=== PATIENT | female | born 1955 | race Caucasian/White ===

== ENCOUNTER 2019-10-04 22:47 | Inpatient (IN) ==
--- NOTE | 2019-10-04 23:09 | PROVIDER DOCUMENTATION ---
HPI-Syncope/Dizziness - General Stated Complaint: LOC,SYNCOPE Time Seen by Provider: 10/04/19 22:51 Source: patient Allergies/Adverse Reactions: Patient Allergies Allergy/AdvReac Type Severity Reaction Status Date / Time sulfamethoxazole AdvReac RASH Verified 07/30/16 10:48 [From Bactrim] trimethoprim [From Bactrim] AdvReac RASH Verified 07/30/16 10:48 Home Medications: Home Medication List Medication Instructions Recorded Confirmed Last Taken Type PRAVAstatin [Pravachol] 80 mg PO QHS 05/26/13 10/05/19 01/05/16 History Potassium Chloride E.r. [Klor-Con] 20 meq PO DAILY 05/26/13 10/05/19 01/06/16 History Metoclopramide [Reglan] 10 mg PO QHS 08/25/15 10/05/19 01/05/16 History Brimonidine 0.1% Ophth Soln 1 drp BOTH EYES BID 10/05/19 10/05/19 Unknown History [Alphagan P 0.1% Ophth Soln] Bromfenac Sodium [Prolensa] 1 drp BOTH EYES DAILY 10/05/19 10/05/19 Unknown History Ciprofloxacin HCl 1 drp RIGHT EYE 4XDAY 10/05/19 10/05/19 Unknown History Furosemide [Lasix] 20 mg PO DAILY 10/05/19 10/05/19 Unknown History Gabapentin 600 mg PO Q6-8H PRN PRN 10/05/19 10/05/19 Unknown History Hydroxyzine [Atarax] 25 mg PO PRN PRN MDD 75MG 10/05/19 10/05/19 Unknown History Losartan [Cozaar] 50 mg PO DAILY 10/05/19 10/05/19 Unknown History Montelukast [Singulair] 10 mg PO QHS 10/05/19 10/05/19 Unknown History [place]-3 Acid Ethyl Esters [Lovaza] 1 gm PO BID 10/05/19 10/05/19 Unknown History Omeprazole 40 mg PO DAILY 10/05/19 10/05/19 Unknown History Prednisolone Acetate/Pf 1 drp LEFT EYE TID 10/05/19 10/05/19 Unknown History [Prednisolone Acet 1% Eye Drop] Prednisolone Acetate/Pf 1 drp RIGHT EYE 4XDAY 10/05/19 10/05/19 Unknown History [Prednisolone Acet 1% Eye Drop] Raloxifene [Evista] 60 mg PO DAILY 10/05/19 10/05/19 Unknown History Temazepam 30 mg PO QHS 10/05/19 10/05/19 Unknown History Tizanidine [Zanaflex] 4 mg PO QHS 10/05/19 10/05/19 Unknown History - History of Present Illness-Syncope/Dizzy Nature of Presenting Problem: 64 YO F pmh for HTN brought in by EMS after called by after she was apparently weak and "out of it" tonight while laying down. He states he could not get her aroused. He called EMS and EMS was going to let the patient come by car, however she was too weak to get helped to the car, so EMS brought her to the ED. Pt had recent cataract surgery this morning. She states she was fine before she went in for surgery today. If witnessed syncope, by whom?: , near syncope witnessed by EMS Prior Episodes: reports: remote history Onset/Duration: reports: this evening Timing: reports: still present, constant Symptoms prior to episode: reports: back pain (chronic). denies: headache, lightheaded, visual disturbance, nausea/vomiting, racing heart, abdominal pain, confusion Context: reports: lost consciousness, became unresponsive, felt faint. denies: confused after event, breathing shallow, breathing stopped, lost pulse, seizure activity observed Loss of Consciousness: brief (seconds) Current Symptoms: reports: weakness. denies: chest pain, breathing difficulty, short of breath, nausea, vomiting, lightheaded, headache Recently Seen Here or By Another Healthcare Provider: Yes - Dizziness Severity in ED: reports: moderate Dizziness Related Current/Associated Symptoms: reports: weakness. denies: lightheaded, dizzy, headache Modifying Factors: improves with: lying down Patient usually:: reports: walks without assistance Review of Systems - Adult - REVIEW OF SYSTEMS - ADULT Constitutional: denies: chills, fever Eyes: reports: see HPI Ears, Nose, Mouth & Throat: reports: no symptoms reported Cardiovascular: reports: no symptoms reported. denies: palpitations Respiratory: reports: no symptoms reported Gastrointestinal: reports: no symptoms reported Genitourinary: reports: no symptoms reported Musculoskeletal: reports: no symptoms reported Integumentary: reports: no symptoms reported Neurological: reports: no symptoms reported Psychiatric: reports: no symptoms reported Hematologic/Lymphatic: reports: no symptoms reported Past History - Adult - PAST MEDICAL HISTORY-ADULT Review of Records: reports: Old Records Reviewed Major Childhood Illnesses: reports: denies history Cardiovascular: reports: HTN, hyperlipidemia Respiratory: reports: bronchitis, COPD Musculoskeletal: reports: chronic pain Neurological: reports: Seizures/Epilepsy (with stress) - PRIOR SURGERIES/PROCEDURES Surgical/Procedure History: reports: recent surgery, appendectomy, hysterectomy, tonsillectomy, hernia repair, orthopedic (extremity), other (cataract removal right eye) - IMMUNIZATION STATUS Childhood Immunizations: See Nurse Assessment Flu Vaccine: See Nurse Assessment - FAMILY HISTORY Family History: reviewed, not pertinent - SOCIAL HISTORY Smoking: denies Substance Use: denies Living Situation: family Physical Exam-General - PHYSICAL EXAM-ADULT Initial Vital Signs Reviewed: Yes - CONSTITUTIONAL General Appearance: slow to respond, other (sleepy) - EYES Eyes: other (eye patch over right eye) - HEAD, EARS, NOSE, MOUTH & THROAT HENMT: normocephalic/atraumatic, moist mucous membranes - NECK Neck: supple - RESPIRATORY Respiratory: lungs clear, normal breath sounds, no pleuratic chest pain, no respiratory distress - CARDIOVASCULAR Cardiovascular: regular rate, rhythm - GASTROINTESTINAL (ABDOMEN) Abdominal Exam: non tender, soft. negative: guarding, rigid, rebound, tenderness, hernia, mass - MUSCULOSKELETAL Extremity: non-tender, normal inspection, no pedal edema - SKIN Integumentary: normal color, normal turgor, warm/dry - NEUROLOGIC Neurologic: grossly normal - PSYCHIATRIC Psych/Mental Status: normal mood/affect, oriented x 3, other (slow to respond, but answers questions appropriately) Progress - PLAN OF CARE/RESULTS Progress/Plan/Lab Results: Orders Category Date Time Status Admit [facility] Routine AdmDCTranf 10/05/19 05:18 Active Activity - Strict Bedrest ORDERED Care 10/05/19 05:18 Active Neurological Check Q4H Care 10/05/19 05:18 Active Nursing- Obtain EKG ONCE Care 10/04/19 23:06 Completed Saline Loc NOW Care 10/04/19 23:06 Completed Vital Signs Order Q 4-HR ASSESS Care 10/05/19 05:18 Active Z-Document. for Tele Applied ORDERED Care 10/05/19 05:[address] HEAD W/O CONTRAST [CT] Stat Exams 10/04/19 23:06 Completed CBC WITH ELECTRONIC DIFF [HEME] Stat Lab 10/04/19 23:46 Completed COMPREHENSIVE METABOLIC PANEL [CHEM] Stat Lab 10/04/19 23:46 Completed TROPONIN T Stat Lab 10/04/19 23:46 Completed TSH Stat Lab 10/04/19 23:46 Completed URINALYSIS W/POSS RFLX CULT [URINALYSIS] Stat Lab 10/05/19 00:31 Completed URINE DRUG SCREEN Stat Lab 10/05/19 00:31 Completed 0.9% Sodium Chloride Inj [Ns] 1,000 ml Med 10/05/19 02:04 Discontinued IV 999 mls/hr Acetaminophen [Tylenol] Med 10/05/19 03:10 Discontinued 650 mg PO NOW ONE Oxygen Device Routine Oth 10/05/19 05:18 Completed Telemetry [OM.EQ] Routine Oth 10/05/19 05:18 Active EKG [EKG] Stat Ther 10/04/19 23:06 Draft Transfer/Admit Order [TRANSFER] Routine Transfer 10/05/19 03:14 Completed Result Diagrams: 10/04/19 23:46 10/04/19 23:46 - REASSESSMENT Reassessment #1 Time Reassessed: 00:30 Status: unchanged (orthostatics positive. will give fluids) - EKG 1 Time of EKG reading by physician:: 23:24 EKG Read and Signed by:: Miracle Disla EKG Interpretation (*Must complete 3 of following elements*): Normal Rate: 64 Rhythm: NSR [place]: normal QRS: normal SD Interval: normal ST Wave: normal Prior EKG Comparison: changes noted (improved from 07/30/16) - CT/MRI 1 CT Study: Head Impression: See EMR Report (No acute intracranial hemorrhage or process lef sphenoid sinusitis) - CONSULTS/PCP/HOSPITALIST Notification #1 *Consult/PCP/Hospitalist*: Dr. Darling Time Discussed: 01:40 Consult Disposition: Will see in ED, Admit Departure - Departure Date of Disposition Decision: 10/05/19 Time of Disposition Decision: 01:41 DIAGNOSIS: Syncope, AMS (altered mental status) Disposition: ADMITTED INPATIENT 09 Certified Medical Emergency: Emergent Condition: Stable - Critical Care Note This patient required my direct & personal management of CC.: No Attestation - Physician/ JAKE Attestation The physician spent face to face time with patient:: Yes Advanced Practice Provider documentation review:: Supervising physician onsite and consulted in the evaluation and care of this patient. The physician did have a face to face encounter with the patient.
[2019-10-04 23:53] LABS: BASO# 0.02 X1000 (0.0-0.2); BASO% 0.5 % (0.0-0.8); EOS# 0.09 X1000 (0.0-0.7); EOS% 2.1 % (0.0-10.0); HEMATOCRIT 38.1 % (37.0-47.0); HEMOGLOBIN 12.2 g/dL (12.0-16.0); LYMPH# 1.71 X1000 (1.2-3.4); MCH 28.3 PG (27-31); MCV 88.4 FL (81-99); MONO# 0.37 X1000 (0.11-0.59); MONO% 8.7 % (1.7-9.3); NEUT# 2.08 X1000 (1.4-6.5); NEUT% 48.7 % (42.2-75.2); PLT 228 X1000 (130-400); RBC 4.31 XMIL (4.2-5.4); RDW 12.9 % (11.5-14.5); WBC 4.27 X1000 (4.8-10.8)
[2019-10-05 00:30] LABS: AGAP 14; CHLORIDE 102 mmol/L (98-107); GLUCOSE 109 mg/dL (70-104); POTASSIUM 3.6 mmol/L (3.5-5.1); SODIUM 140 mmol/L (136-145); TCO2 24 mmol/L (25-35)
[2019-10-05 00:31] LABS: ALB/GLOB RATIO 1.7; ALBUMIN 3.8 g/dL (3.5-5.0); ALKALINE PHOSPHATASE 91 U/L (32-104); BUN 18 mg/dL (8-22); CALCIUM 8.9 mg/dL (8.8-10.2); COSMO 282; CREATININE 0.8 mg/dL (0.5-0.9); ESTIMATED GFR > 60; GOT 17 U/L (10-30); GPT 14 U/L (10-36); TOTAL BILIRUBIN 0.26 mg/dL (0.20-1.00)
[2019-10-05 00:43] LABS: URINE SOURCE CATH
[2019-10-05 01:05] LABS: BILIRUBIN URINE NEGATIVE (NEGATIVE); BLOOD URINE NEGATIVE (NEGATIVE); COLOR YELLOW; GLUCOSE URINE NEGATIVE (NEGATIVE); KETONE URINE NEGATIVE (NEGATIVE); LEUKOCYTES URINE NEGATIVE (NEGATIVE); NITRITE URINE NEGATIVE (NEGATIVE); PH URINE 5.5; PROTEIN URINE NEGATIVE (NEGATIVE); SP GRAVITY URINE 1.015; TURBIDITY URINE CLEAR (CLEAR); UR EPITHELIAL CELLS <10 /HPF (<10); URINE BACTERIA NEGATIVE /HPF; URINE RBC <10 /HPF (<10); URINE WBC <10 /HPF (<10); UROBILINOGEN URINE NORMAL (NORMAL)
[2019-10-05 01:06] LABS: UR AMPHETAMINES QUAL NONE DETECTED (NONE DETECT); UR BARBITUATES QUAL NONE DETECTED (NONE DETECT); UR BENZODIAZEPIN QUAL PRESUMPTIVE POSITIVE (NONE DETECT); UR CANNABINOIDS QUAL PRESUMPTIVE POSITIVE (NONE DETECT); UR COCAINE QUAL NONE DETECTED (NONE DETECT); UR METHADONE QUAL NONE DETECTED (NONE DETECT); UR OPIATES QUAL NONE DETECTED (NONE DETECT); UR OXYCODONE QUAL NONE DETECTED (NONE DETECT); UR PCP QUAL NONE DETECTED (NONE DETECT)
--- NOTE | 2019-10-05 01:14 | EKG Report ---
Test Performed on : 10/04/2019 11:19:03 PM Test Reason : CP Blood Pressure : / mmHG Vent. Rate : 064 BPM Atrial Rate : 064 BPM P-R Int : 178 ms QRS Dur : 084 ms QT Int : 416 ms P-R-T Axes : 054 023 021 degrees QTc Int : 429 ms Normal sinus rhythm. Low voltage QRS Borderline ECG When compared with ECG of 30-JUL-2016 11:22, Nonspecific T wave abnormality, improved in Inferior leads Unconfirmed Result
[2019-10-05] MEDS ORDERED: NS 1,000 ML IV ONE (02:04)
--- NOTE | 2019-10-05 03:00 | HISTORY AND PHYSICAL ---
ADDENDUM: Ms. Joanna Sanchez is a 64-year-old woman with past medical history of hypertension, hyperlipidemia, osteoporosis and asthma who underwent cataract surgery early hours of yesterday. She did take her blood pressure medication, i.e. losartan, prior to the surgery and took the rest thereafter. She denies any recent change in the dose of any of her medication or any new medication of recent. She reports that late last night yesterday her found her unresponsive and had to really arouse, shaking her vigorously to wake her up. He then called EMS to try to get her up on 2 or 3 occasions and she transiently blacked out. There were no antecedent or prodromal symptoms prior to this. Prior to being brought to the ER, blood pressure was in the 80/40 range with a heart rate of 70. Since she has been in the ER, she received 2 L of fluid. She says she is feeling better. Her blood pressure is now 150/102. She remains with a dull headache. The patient has extensive list of medications and her urine drug screen was notable for THC. Some of the medications she does not know why she is taking some of them, just takes them because the doctor told her to. I have reviewed her list of medications, and Zanaflex could be a problem as it can cause orthostatic hypotension. This was noticed in the ER, i.e. the orthostatic hypotension. Her blood pressure medications may also be playing a role and these will need to be adjusted or in some cases discontinued. Other medications of note that might need to be stopped include Reglan, which she does not really have a good reason for taking. The patient may need to decide whether she needs to be on Evista or Fosamax for osteoporosis. We will order an echocardiogram to make sure she does not have valvular disease, but her cardiorespiratory exam is normal, however. She will be monitored overnight on telemetry and orthostatic vital signs will be done during her stay. It is possible patient may also have yet to be diagnosed dysautonomia. cc: Seamus Darling MD
[2019-10-05] MEDS ORDERED: TYLENOL PO ONE (03:10)
[2019-10-05] MEDS ORDERED: ZOFRAN IV PRN (05:18)
[2019-10-05] MEDS: PRILOSEC PO SCH (06:35)
--- NOTE | 2019-10-05 06:42 | Diag Imaging Result Doc PS360 ---
CT HEAD W/O CONTRAST - 10/04/2019 INDICATION: ams/ syncope COMPARISON: 01/06/2016 FINDINGS: The ventricles and sulci are normal in size and contour. No intracranial mass or hemorrhage. The skull is intact. There is severe opacification of the left sphenoid sinus compatible with sinusitis. IMPRESSION: Sinusitis. No acute disease. This exam was performed using automated exposure control, adjustment of mA or kV according to patient size, and/or use of iterative reconstruction technique Electronically signed by Jace Lester 10/05/2019 6:39 AM
[2019-10-05] MEDS: TYLENOL PO PRN ×2 (11:19→20:49)
--- NOTE | 2019-10-05 11:27 | HISTORY AND PHYSICAL ---
PRIMARY CARE PROVIDER: Dr. Moreira with [facility]. DATE AND TIME: 10/05/2019 at 0300. CHIEF COMPLAINT: Syncope. HISTORY OF PRESENT ILLNESS: Ms. Sanchez is a 64-year-old female who presented to the ER with complaints of syncope. The patient did undergo surgery on her right eye for a cataract surgery earlier in the day on October 04, 2019. The patient reports that she did take her blood pressure medication prior to surgery though took all her other morning meds at around 12 p.m. after she arrived home from surgery and then took her nighttime meds at around 9 p.m. She did report that she did receive some type of antianxiety medication through her IV during the procedure though other than this did not receive any other medications that she is aware of. She did not receive any oral or IV pain medications. The patient denies any recent changes in any of her medicines or any new medications. She denied feeling drowsy, weak or not feeling well after she arrived home and prior to taking her nighttime meds and having her syncopal episode. Her reports that the patient was lying in bed. He left the room and came back to find her unresponsive. She was laying down in the bed at the time. She did not fall during her syncopal episode. He reported that he did try to arouse her though was unable to and did call EMS. Prior to or just shortly after EMS arrival, the patient did regain consciousness. Her blood pressure was noted to be in the 80s systolically. Her reports that they were initially going to try to bring her to the ER by private vehicle though when they attempted to get her up out of bed to help her walk to the car, the patient had further syncopal episodes. She was, ultimately, brought in by EMS. The patient denied any neurological symptoms or not feeling well prior to her syncopal episode. She states she has had similar episodes to this on several different occasions though has not actually ever seen a physician for further evaluation of these. She states that with her other syncopal episodes, she did not have any symptoms prior to either. She does report a history of seizures which she states she has had several in the past with the last one being in October,, though does not take any seizure medications. She is reporting a headache at this time though she is lying in semi-Sin's position at the present time and is not reporting any dizziness or feelings of being lightheaded. She denies any chest pain, shortness of breath, cough, abdominal pain, nausea, vomiting or diarrhea. She denies any bleeding of any kind. She denies hematemesis, hematochezia or melena. She denies any dysuria or urinary frequency. The patient does have some chronic swelling in her bilateral lower extremities, mainly around her ankles that she takes Lasix for daily; though other than this, she denies any other worsening swelling or any new pain, numbness or tingling. She also denies any fever, body aches or chills. She denies any visual disturbances other than the visual disturbance in her right eye since her surgery yesterday morning. Upon evaluation in the ER, her initial vital signs upon arrival here were heart rate 64, respirations 16, blood pressure 141/100 with MAP of 109, oxygen saturation 93% on room air. Though as previously mentioned, EMS reported her having a low blood pressure in the 80s systolically as well as her did report this at home as well. She did receive, from what I understand, a small bolus with EMS prior to arrival; but other than this has not received any other fluids. Labs were pretty unremarkable. Electrolytes were within normal limits. Serum glucose was 109. Fingerstick was 103 upon arrival. CK and troponin are negative. Urinalysis did not show any signs of infections. Urine drug screen was positive for benzodiazepines though she does take temazepam and did was positive for cannabinoids as she did report that she does smoke 1 joint a day and has done so for 30 years. EKG showed normal sinus rhythm at a rate of 64 with QTc of 429. They performed a head CT without contrast which did show sinusitis though no other acute disease was noted. They did attempt on 2 different occasions in the ER to perform orthostatic vital signs though the patient did become very symptomatic just upon going from a lying to a sitting position, so they are going to attempt this later on this morning. At this time the patient will be admitted for further treatment and evaluation of her syncope. REVIEW OF SYSTEMS: A 14-point review of systems was conducted with the patient, and all were negative except for pertinent positives mentioned in the above HPI. PAST MEDICAL HISTORY: 1. History of COPD/asthma. 2. Hyperlipidemia. 3. Hypertension. 4. History of seizures. 5. Fibromyalgia. 6. History of osteoporosis. 7. GERD. 8. History of insomnia. 9. History of sleep apnea with CPAP worn nightly. 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 11.Chronic bilateral lower extremity swelling PAST SURGICAL HISTORY: 1. Appendectomy. 2. Cystoscopy/bladder surgery. 3. Hysterectomy. 4. Salpingo-oophorectomy. 5. Hernia repair. 6. Tonsillectomy. 7. Surgery for calcium deposit/knot in her hand. 8. Surgery for calcium deposit/knot removed from her head, per the patient. 9. Partial right lung removal secondary to carcinoid tumor. 10.Cataract surgery on her left eye. 11.Status post cataract surgery on her right eye yesterday, October 04, 2019. SOCIAL HISTORY: The patient denies any tobacco or alcohol use though said she has been exposed to secondhand smoke. She does report that she does smoke 1 marijuana joint every night and has done so for 30 years. FAMILY HISTORY: Positive for her mother having a history of dementia. Her father from a myocardial infarction. He had hypertension as well. She does have 1 sibling who has had a stroke at a fairly young age. ALLERGIES: The patient has allergies to sulfur, Bactrim and has been instructed not to take aspirin or ibuprofen by her physician though the patient does not know exactly why but denied allergic reaction to NSAID. HOME MEDICATIONS: 1. Lasix 20 mg p.o. daily. 2. Gabapentin 600 mg p.o. q 6-8 hours p.r.n. 3. Cozaar 50 mg p.o. daily. 4. Reglan 10 mg p.o. q bedtime. 5. Singulair 10 mg p.o. q bedtime. 6. Lovaza 1 gram p.o. b.i.d. 7. Omeprazole 40 mg p.o. daily. 8. Potassium chloride extended release 20 mEq p.o. daily. 9. Pravastatin 80 mg p.o. q bedtime. 10.Evista 60 mg p.o. daily. 11.Temazepam 30 mg p.o. q bedtime. 12.Zanaflex 4 mg p.o. q bedtime. 13.Hydroxyzine and trazodone were listed on the patient's home medication list though she states she does not take these medications any more. 14.The patient also has 4 new prescriptions for eye medications related to her surgery that she had yesterday morning on October 04, 2019, though these are unknown at this time. The patient's is supposed to be bringing these medications. We have placed an order for the nurse to update these medications in the computer and notify the physicians once done so that the appropriate medications can be continued. WBC 4270, hemoglobin 12.2, hematocrit 38.1, platelet count 228,000, sodium 140, potassium 3.6, chloride 102, serum bicarb 24, BUN 18, creatinine 0.8 with GFR greater than 60, glucose 109, calcium 8.9, magnesium 2. Liver function tests within normal limits. CK 73. Troponin less than 0.01. TSH 3.14. Urinalysis obtained via catheter was negative for protein, glucose, ketones, blood, nitrites, leukocytes, white blood cells or bacteria. Urine drug screen was positive for benzodiazepines and cannabinoids. EKG showed normal sinus rhythm, rate of 64 with QTc of 429. CT of the head without contrast showed sinusitis though no acute disease (note this is per radiology). PHYSICAL EXAMINATION: VITAL SIGNS: Temperature 98, heart rate 71, respirations 16, blood pressure 152/105, oxygen saturation 97% on room air. GENERAL: Ms. Sanchez us a pleasant 64-year-old female who is resting on the ER stretcher. She is in no acute distress. She was awake, alert and able to answer questions appropriately. HEENT: Head is atraumatic, normocephalic. Pupils are 3 mm bilaterally. The patient did have a clear protective eye patch noted over her right eye. Oral mucosa is moist. Oropharynx is clear. NECK: Supple. Trachea midline. No carotid bruits noted upon auscultation. CARDIOVASCULAR: The patient has S1 and S2 present. No murmurs, gallops or rubs appreciated. Regular rate and rhythm. PULMONARY: The patient has symmetrical chest expansion bilaterally. Lung sounds are clear to auscultation in bilateral full menard. ABDOMEN: Soft, nontender and nondistended. Bowel sounds are present in all 4 quadrants and normoactive. EXTREMITIES: No cyanosis or edema noted. Pulse, motor and sensory are intact in all extremities. Radial and pedal pulses are 2+ bilaterally. INTEGUMENTARY: The patient's skin is pink, warm and dry. NEUROLOGICAL: The patient is alert and oriented to person, place, time and situation. She has equal hand grasp and muscle strength bilaterally. There is no facial droop noted. There is no arm drift noted. She did not report any visual disturbances other than some blurriness in her right eye though the patient did have eye surgery for cataract on her right eye yesterday. She denies any numbness or tingling in the extremities. ASSESSMENT AND PLAN: 1. Syncope. For further evaluation of this, we have order for the patient to receive an echocardiogram as well as an EEG. Though she is denying any chest pain, given her syncope, we will go ahead and do a series of cardiac enzymes. Electrolytes were within normal limits. This could be orthostatic in nature though at this time orthostatics have not been completed due to the fact that the patient was still symptomatic the first 2 times they attempted. Her blood pressure has improved though until we complete orthostatic blood pressures to see how she responds to positional changes, we will not administered any antihypertensives at this time. We are going to hold some of her medications as well that may have attributed possibly to her syncopal episode, specifically her Zanaflex and temazepam. We have placed a consult with cardiology and neurology. She will have q 4 hour vital signs and neuro checks. She will be placed on strict bedrest at this time. We will await results of diagnostic studies and cardiology's and neurology's evaluation and further recommendations for management. 2. History of hypertension. As mentioned above, we are holding her antihypertensive medication at this time. 3. History of reported seizures in the past though the patient states she does not take any seizure medications at present. 4. Status post right eye surgery for cataract by Dr. Shearer yesterday, October 04, 2019. We have placed a nursing order for them to notify Dr. Shearer this morning of the patient's condition and admission. She was supposed to have a follow-up postoperative appointment this morning on October 05, 2019, at 8:15 a.m. We have also requested that the patient's bring her 4 eye medications to the hospital this morning so that they can be reconciled and placed in the patient's chart and appropriate eyedrops can be continued, given her recent eye surgery. 5. DVT prophylaxis will be provided with SCDs. The patient has been placed on the medical floor with telemetry. She will have vital signs q 4 hours, neuro checks q 4 hours with strict intake and output. She is on bedrest at this time. She will be on a heart healthy diet. Further orders and recommendations pending hospital course, diagnostic studies and physician evaluation. Dictated by NADINE Joyner for Seamus Darling MD cc: Seamus Darling MD [facility]
--- NOTE | 2019-10-05 15:41 | CONSULTATION ---
DATE OF CONSULTATION: 10/05/2019 Ms. Sanchez is 64 years old and she had some recent collapse with question of altered awareness. History from the patient is that she felt pretty well following cataract surgery yesterday morning. Last evening helped her get her eye drops placed. She took her usual nighttime medicines which include temazepam chronically. She remembers her getting up to go to the bathroom and she next realized was "trying to arouse me" by shaking her and calling her name. She remembers having discussion with and deciding that ambulance would be summoned. When ambulance arrived, she remembers having discussion that she preferred not to ride by ambulance and she would attempt to go the emergency room by private car. She remembers being helped up and taking a few steps and then beginning to collapse to the floor. She remembers being helped up again, collapsing again and then helped up and collapsing a 3rd time. She is not certain there was ever memory gap with these 3 brief episodes of collapse. She felt weak all over. She did not notice focal weakness. She had a lightheaded sensation "like about to pass out." reports he found her with eyes rolled up and she seemed unable to speak to him. She felt clammy. He checked her blood pressure several times and reports finding 80s over 50s. He reports she has had episodes in the past of inattention and clammy sensation and blood pressures have been as low as 70/50 then. 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 These began about 10 years ago following some bad news regarding family member. reports he has checked blood pressures on several occasions during these episodes and at least once blood pressure was 70 over 50s. He does not recall the other blood pressure readings during an episode. She has wet her pants a few times during these spells. Episodes have been associated with eye fluttering and poor attention going on for a minute up to 10 minutes. There has never been rigidity, limb jerking or other seizure- like feature. She often feels exhausted afterward. She reports taking medicine for seizure control for a year or so and that did not stop the spells. She does not remember the name of the medicine or the dose. She stopped that medicine several years ago. There is no history of serious head injury, diagnosed stroke, seizure other than what is reported above, other episodes of syncope or collapse. Workup here includes noncontrast CT of the head showing nothing remarkable. EEG just completed is normal. She has been afebrile. Systolic blood pressures have ranged 130s to 170s here. Heart rate has ranged 60s to 80s. Lab included urine drug screen positive for cannabis and for benzodiazepine consistent with her home prescription for temazepam. Chemistry showed blood sugar 109 and nothing else remarkable. On exam, Ms. Sanchez is awake, alert, attentive, bright, oriented and appropriate. Speech is not dysarthric. Language function is intact. Memory of recent and remote events is good. Head and neck are unremarkable. Visual menard are full tested by confrontational finger counting. Extraocular movements are full. She has a shield over the right eye. Facial motility is symmetric. Tongue is midline. Palate is midline. Shoulder shrug is equal. Strength is normal in the arms and legs. She did well on [id number] testing bilaterally. She has some variable responses to pinprick testing over the lower legs but there was no consistent or reproducible deficit identified. I did not test her gait. Plantar response is silent bilaterally. Reflexes are 1+ at the ankles and wrists symmetrically. IMPRESSION: 1. Recent period of inattention and 3 brief episodes of collapse with uncertain altered awareness. Features seem more consistent with postural lightheadedness. I do not think these were primary neurologic events. 2. She has history of "stress seizures" which appear to have been worked up thoroughly and have been shown to be not epileptic seizures. I do not think we need further workup for that problem now. Negative EEG today is reassuring. If she has more episodes, I will be glad to see her later as an outpatient to discuss that problem. I encouraged her to take her medicines as directed, to be careful with activities, to sit down if she is lightheaded, to stay well hydrated and to keep followup with her other clinics. Thanks for asking Neurology to see Ms. Sanchez. cc: MD LUIS Lehman III
--- NOTE | 2019-10-05 16:02 | Diag Imaging Result Doc PS360 ---
MRI BRAIN W/WO CONTRAST - 10/05/2019 INDICATION: recurrent syncope, seizures COMPARISON: CT from 10/04/2019 FINDINGS: There is no area of restricted diffusion. The ventricles and sulci are normal in size and contour. No intracranial mass or hemorrhage. No area of abnormal contrast enhancement. Midline structures including the optic chiasm and pituitary are normal. There is sphenoid sinusitis. IMPRESSION: Sphenoid sinusitis. Otherwise negative exam. Electronically signed by Jace Lester 10/05/2019 4:00 PM
[2019-10-05] MEDS: NEURONTIN PO PRN ×2 (16:19→22:31)
[2019-10-05] MEDS: CILOXAN OPHTH SOLN RIGHT EYE SCH ×2 (17:37→20:51)
[2019-10-05] MEDS: PRED FORTE 1% OPH SUSPENSION RIGHT EYE SCH ×2 (17:38→20:51)
[2019-10-05] MEDS: PRED FORTE 1% OPH SUSPENSION LEFT EYE SCH (17:38)
--- NOTE | 2019-10-05 18:16 | CARDIOLOGY CONSULTATION ---
DATE: 10/05/2019 CONSULTATION REQUESTED BY: Hospitalist Service. REASON FOR REQUEST: 1. Syncopal episodes. 2. Loss of consciousness. HISTORY: Ms. Sanchez is a patient of Dr. Radha Gaston. She is 64 years of age, female. She was brought to the emergency room yesterday because early in the morning, she had cataract surgery. She had an uneventful day. At night, she was watching TV with her and all the time when she was lying on her back the found her unresponsive. He went back to the bed after going to the bathroom and shook her up a little until eventually she seemed to come back to her senses. Her blood pressure reportedly was low in the systolic 80/40 or so. They called the EMS. The patient tried to get up and walk 3 times or so and 3 times she went back and fell on her bed. The patient reportedly has had extensive evaluation at [facility] for these episodes in the past and the diagnosis that was given to the was that she had "psychosomatic seizures." The patient denies having chest pain or shortness of breath. She is just limited because of physical deconditioning. PAST HISTORY: Positive for hypertension. She also has hyperlipidemia. She has acid reflux. She has some chronic back pain. SURGICAL HISTORY: She just had cataract surgery yesterday of the right eye. They did not give her any systemic medication. She has had hysterectomy in the past. She has had back surgery. She has been diagnosed with "carcinoid tumor". This has been followed by the Oncology service Dr. Garcia. The patient has no other major history. SOCIAL HISTORY: She has been to her for 40 years. She has 4 grownup children. Not a smoker. FAMILY HISTORY: Father had a massive WA. HOME MEDICATIONS: At the time of this admission included the following: She is taking ciprofloxacin eye drops alphgan eyedrop and brimonidine eye drops. Furosemide/Lasix 20 mg daily, gabapentin 300 every 6 to 8 hours, Atarax 25 mg as needed, losartan 50 mg daily. Reglan 10 mg at bedtime. Singular 10 mg at bedtime. Lovaza 1 g twice. Omeprazole 40 mg twice. Potassium chloride 20 mEq daily. Pravachol 80 mg at bedtime. Temazepam 30 mg at bedtime. Zanaflex 4 mg at bedtime. Trazodone 150 mg at bedtime. ALLERGY: Sulfa drugs. Trimethoprim. REVIEW OF SYSTEMS: Some chronic headache in the mornings and for which she takes Tylenol and some chronic back pain, nothing significant. She is not very active physically. OBJECTIVE: Vital Signs: At this time, blood pressure 159/88, temperature 98.1 degrees, pulse 83, respirations 18. General: She is awake, alert, in no distress. HEENT: Unremarkable. Chest: Clear to auscultation and percussion. Heart: Sounds regular and rhythmic. No gallop or murmur. Abdomen: Nontender, obese. Extremities: Showed good pulses. No peripheral edema. Neurological: Nonfocal moves 4 extremities. IMPRESSION: 1. Patient who presents with loss of consciousness which happens when she is lying flat. That is not cardiac syncope. The only possible cardiac syncope would be if she were having advanced heart block or ventricular tachyarrhythmia and that is not the case. Her 12 lead EKG does not support such a diagnosis. Her ECG last night at 11:19 p.m. shows sinus rhythm, rate 64 beats per minute. OH interval 178, QRS 84 milliseconds. 2. History of hypertension. 3. History of hyperlipidemia. 4. Obesity. Body mass index is 36.5. 5. 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 History of carcinoid tumor. RECOMMENDATION: At this time from a cardiac viewpoint, I would await the results of the echocardiogram and neurology evaluation. I really cannot attribute her complaints to cardiac pathology, because again, if this were an arrhythmia, we would have seen something on the resting ECG and we have not and there is no consistent orthostatic hypotension in this case. Further advice will be forthcoming. cc: Siemon Heaton MD [facility]
[2019-10-05] MEDS: ZANAFLEX PO SCH (20:45)
[2019-10-05] MEDS: RESTORIL PO SCH (20:45)
[2019-10-05] MEDS: DESYREL PO SCH (20:46)
[2019-10-05] MEDS: SINGULAIR PO SCH (20:46)
[2019-10-05] MEDS: ALPHAGAN P 0.1% OPHTH SOLN BOTH EYES SCH (20:50)
[2019-10-06] MEDS: PRILOSEC PO SCH (06:11)
--- NOTE | 2019-10-06 06:52 | EEG REPORT ---
DATE: 10/05/2019 EEG #: [id number] COMMENT: This is a digitally recorded EEG on a 64-year-old patient with recent multiple episodes of collapse with brief altered awareness and reported history of "stress seizures" over the last 8 to 10 years. FINDINGS: During waking, medium amplitude 9 Hz posterior rhythm is present symmetrically and reacts normally to eye opening. Background contains polymorphic and rhythmic theta frequencies over the frontal and central regions symmetrically. Drowsing occurred briefly with appearance of more generalized slowing and attenuation of the posterior rhythm. Stage 2 sleep was not recorded. Photic stimulation did not significantly alter the record. Hyperventilation was not done. No definite epileptiform discharge was identified. INTERPRETATION: Normal electroencephalogram. CORRELATION: The absence of epileptiform discharges on a single EEG does not exclude a clinical diagnosis of seizures, but there is nothing on this record to suggest the presence of a seizure disorder. cc: Crow Agrawal III, MD MTDD
[2019-10-06] MEDS: ALPHAGAN P 0.1% OPHTH SOLN BOTH EYES SCH ×2 (09:31→20:48)
[2019-10-06] MEDS: PRED FORTE 1% OPH SUSPENSION RIGHT EYE SCH ×4 (09:31→20:48)
[2019-10-06] MEDS: CILOXAN OPHTH SOLN RIGHT EYE SCH ×4 (09:31→20:48)
[2019-10-06] MEDS: COZAAR PO SCH (09:32)
[2019-10-06] MEDS: NEURONTIN PO PRN ×2 (09:32→18:38)
[2019-10-06] MEDS: EVISTA PO SCH (09:32)
[2019-10-06] MEDS: LASIX PO SCH (09:32)
[2019-10-06] MEDS: PATIENT'S OWN MED BOTH EYES SCH (09:32)
[2019-10-06] MEDS: PRED FORTE 1% OPH SUSPENSION LEFT EYE SCH ×3 (09:33→18:11)
--- NOTE | 2019-10-06 12:11 | ECHO REPORT ---
ORDER DATE: 10/05/2019 INTERPRETING PHYSICIAN: Glenn Jacobs MD. ECHOCARDIOGRAPHIC MEASUREMENTS: 1. Interventricular septum 1.0. 2. Left ventricular posterior wall 1.0. 3. Diastolic diameter 4.8. 4. Left atrium 3.7. 5. Aorta 3.7. FINDINGS: 1. Aortic valve leaflets are trileaflet. 2. Pulmonic valve was normal. 3. Tricuspid valve was normal. 4. Mitral valve was normal. 5. Mild mitral regurgitation. 6. Mild tricuspid regurgitation. Peak velocity across the tricuspid valve less than 2 m/sec by Doppler studies. There is no aortic stenosis or regurgitation. 7. Normal left ventricular cavity size. Estimated ejection fraction of 70%. Hyperdynamic left ventricular systolic function. 8. There is no pericardial effusion or obvious intracardiac mass or thrombus. cc: Glenn Jacobs MD
--- NOTE | 2019-10-06 12:25 | PROGRESS NOTE ---
DATE: 10/06/2019 SUBJECTIVE: 1. Patient of Dr. Radha Gaston. This 64-year-old came in because of syncope. She presented to the ER after complaining of syncope. Patient did undergo syncope and hit her right eye. She underwent surgery on the right eye for cataract surgery on the day of 10/05/2019. The patient reports she did take her blood pressure medication prior to surgery, though took all her other morning medications around 12 p.m. She arrived home from surgery and took her nighttime medications around 9 o'clock. Did report she received some type of antianxiety medication in IV. So, she did not fall during the syncopal episode, but he did try to arouse her, unable to, and the patient regained consciousness. Blood pressure noted to be in the 80s, so admitted with syncopal episode. Plan is to look at her left ventricular function and check out electrolytes. 2. History of hypertension. Blood pressures have been low. 3. History of reported seizures in the past. The patient does not take any seizure medication. 4. Status post right eye surgery for cataract per Dr. Shearer the day before admission. The patient is feeling better. Blood pressure is running a little bit high. OBJECTIVE: Vital Signs: Temperature 97.7 degrees, pulse 69, respirations 18. Lungs: Clear in all lung menard. Cardiovascular exam: Regular rhythm and rate without murmur or S3. Abdomen: Soft. Skin: Skin is warm and dry. CURRENT MEDICATION: On Singulair 10 mg at bedtime, Restoril 30 mg at bedtime, Zanaflex 4 mg at bedtime, Desyrel 150 mg at bedtime, ciprofloxacin 0.3%--I think that it is drops that she has in that right eye, Lasix 40 mg a day, Neurontin 600 mg p.o. q. 6 to 8 hours, Cozaar 50 mg daily, Evista 60 mg daily. The patient is feeling better. We are going to need to make sure she can ambulate and do okay. So, we will get physical therapy going and occupational therapy to make sure she is ambulating. cc: Pawel Miller MD
[2019-10-06] MEDS: TYLENOL PO PRN ×2 (12:40→18:38)
[2019-10-06] MEDS: SINGULAIR PO SCH (20:47)
[2019-10-06] MEDS: ZANAFLEX PO SCH (20:47)
[2019-10-06] MEDS: RESTORIL PO SCH (20:47)
[2019-10-06] MEDS: DESYREL PO SCH (20:48)
[2019-10-07] MEDS: NEURONTIN PO PRN ×4 (03:30→22:53)
[2019-10-07] MEDS: PRILOSEC PO SCH (06:24)
--- NOTE | 2019-10-07 09:05 | PROGRESS NOTE ---
DATE: 10/07/2019 SUBJECTIVE: Ms. Sanchez feels much better today and she feels a little stronger. Does not feel swimmy headed or lightheaded. She remains afebrile. OBJECTIVE: Vital Signs: Temperature 97.7 degrees, pulse 70, respirations 14, blood pressure 129/87. HEENT: Pupils are equal and round. Lungs: Clear in all lung menard. Cardiovascular: Regular rate without murmur or S3. Abdomen: Soft. Skin: Warm and dry. Urine output was 800 mL. ASSESSMENT AND PLAN: 1. The patient of Dr. Radha Gaston, a 64-year-old who developed syncope. After she had surgery on her right eye, she fell and had a syncopal episode. The patient did take her blood pressure medications prior to surgery and then took all of her other medications about 12 o'clock p.m. Her blood pressure looks much better. Last several blood pressures 186/101, 168/103, 167/97, and 129/687 was her last one. So we will continue her current medications. She is on Cozaar 50 mg a day, Lasix 20 mg a day. 2. She has a history of hypertension. 3. History of reported seizures in the past. She is not on any seizure medications. This event does not sound like it was a seizure. 4. She has had recent surgery on her right eye per Dr. Horner's for cataract surgery. Hopefully, she can go home tomorrow. cc: Pawel Miller MD
[2019-10-07] MEDS: TYLENOL PO PRN ×2 (09:33→15:45)
[2019-10-07] MEDS: EVISTA PO SCH (09:33)
[2019-10-07] MEDS: COZAAR PO SCH (09:33)
[2019-10-07] MEDS: LASIX PO SCH (09:33)
[2019-10-07] MEDS: ALPHAGAN P 0.1% OPHTH SOLN BOTH EYES SCH ×2 (09:34→20:53)
[2019-10-07] MEDS: PRED FORTE 1% OPH SUSPENSION LEFT EYE SCH ×3 (09:35→18:03)
[2019-10-07] MEDS: PRED FORTE 1% OPH SUSPENSION RIGHT EYE SCH ×4 (09:35→20:54)
[2019-10-07] MEDS: CILOXAN OPHTH SOLN RIGHT EYE SCH ×4 (09:37→20:53)
[2019-10-07] MEDS: PATIENT'S OWN MED BOTH EYES SCH (09:37)
[2019-10-07] MEDS: RESTORIL PO SCH (20:48)
[2019-10-07] MEDS: ZANAFLEX PO SCH (20:48)
[2019-10-07] MEDS: DESYREL PO SCH (20:48)
[2019-10-07] MEDS: SINGULAIR PO SCH (20:48)
[2019-10-08] MEDS: PRILOSEC PO SCH (06:05)
[2019-10-08] MEDS: NEURONTIN PO PRN (08:04)
[2019-10-08] MEDS: EVISTA PO SCH (09:08)
[2019-10-08] MEDS: LASIX PO SCH (09:08)
[2019-10-08] MEDS: COZAAR PO SCH ×2 (09:08→09:15)
[2019-10-08] MEDS: ALPHAGAN P 0.1% OPHTH SOLN BOTH EYES SCH (09:09)
[2019-10-08] MEDS: CILOXAN OPHTH SOLN RIGHT EYE SCH ×2 (09:09→13:11)
[2019-10-08] MEDS: PATIENT'S OWN MED BOTH EYES SCH (09:10)
[2019-10-08] MEDS: PRED FORTE 1% OPH SUSPENSION RIGHT EYE SCH ×2 (09:10→13:13)
[2019-10-08] MEDS: PRED FORTE 1% OPH SUSPENSION LEFT EYE SCH ×2 (09:11→13:11)
[2019-10-08 11:57] VITALS: BP 117/80
--- NOTE | 2019-10-08 14:21 | DISCHARGE SUMMARY ---
ADMISSION DATE: 10/05/2019 DISCHARGE DATE: HISTORY OF PRESENT ILLNESS: She is followed by Dr. Radha Gaston and Dr. Harish mello at [facility]. This is a 64-year-old, female who presented after an episode of syncope. She presented to the emergency room with complaints of syncope. The patient did undergo surgery to the right eye with cataract extraction earlier in the day, 10/04/2019. She reports that she did take her blood pressure medications prior to surgery, though took all of her other morning medications around 12 p.m. after she arrived home from surgery and then took her nighttime medications around 9 p.m. She did report she did receive some type of antianxiety medication through her IV during the procedure but did not receive any other medications she is aware of. The patient denies any recent changes in her medication. Denied feeling drowsy, weak, or not particularly feeling well after she arrived home. Her reports that the patient was lying in bed. He left the room and came back to find her unresponsive. She was laying down in the bed at that time. She did not fall during her syncopal episode. He tried to arouse her, though was unable to and so he called EMS. Prior, just before arrival, she did regain consciousness. Blood pressure was noted to be in 80s systolic. Reports that they were initially going to try and bring her to the emergency room by private vehicle. Then they attempted to get her out of bed and help her walk to the car. Patient had further syncopal episodes. The patient denied any neurologic symptoms or feeling weak prior to this episode. She has had similar episodes to this on several different occasions though. Not actually ever seen a physician for further evaluation of these. States that with her other syncopal episodes, she did not have any symptoms prior to this either. She does report a history of seizures which she states she has had several in the past with the last one being in October of 2018. Does not take any seizure medications. She is reporting a headache at the time she was lying in a semi-Sin's position, not reporting any dizziness or feeling of lightheadedness. Upon evaluation in the emergency room, heart rate was 64, respirations 16, blood pressure 141/100, MAP of 109, O2 saturations were 93%. She had some fluid boluses given. Fingerstick was 103 on arrival for blood sugar. EKG showed normal sinus rhythm with a rate of 64. QTc was 429. They performed a CT of the head without contrast and it did show some sinusitis, though no other acute disease noted. PAST MEDICAL HISTORY: 1. History of COPD and asthma. 2. Hyperlipidemia. 3. Hypertension. 4. History of seizures. 5. Fibromyalgia. 6. History of osteoporosis. 7. Gastroesophageal reflux disease. 8. History of insomnia. 9. History of sleep apnea, with CPAP wore nightly. 10. History of carcinoid tumor in the right lung. 11. Chronic bilateral lower extremity swelling. PAST SURGICAL HISTORY: 1. Appendectomy. 2. Cystoscopy, bladder surgery. 3. Hysterectomy. 4. Salpingo-oophorectomy. 5. Hernia repair. 6. Tonsillectomy. 7. Surgery for calcium deposit knot on her hand. 8. Surgery for calcium deposit knot removed from her head. 9. Partial right lung removal secondary to carcinoid tumor. 10. Cataract surgery in the left eye. 11. Status post cataract surgery in the right eye the day before admission, 10/04/2019. MEDICATIONS: Reviewed her home medications. She is on: 1. Lasix 20 mg a day. 2. Gabapentin 600 mg q.6-8 hours. 3. Cozaar 50 mg a day. 4. Reglan 10 mg at bedtime. 5. Singulair 10 mg at bedtime. 6. Lovaza 1 g b.i.d. 7. Omeprazole 40 mg a day. 8. Potassium chloride extended release 20 mEq a day. 9. Pravastatin 80 mg at bedtime. 10. Evista 60 mg a day. 11. Temazepam 30 mg at bedtime. 12. Zanaflex 4 mg at bedtime. 13. Hydroxyzine and trazodone were listed in her medications, though she states that she does not take these medicines anymore. 14. The patient had 4 new prescriptions for eye medications related to surgery. ADMISSION DIAGNOSIS: Syncope. HOSPITAL COURSE: [place] she might have a little intravascular volume depletion and possibility of vasovagal type syncope with nausea involved as well. She did not show any significant arrhythmia. Echocardiogram with Doppler was done on 10/05/2019. Aortic valves were trileaflet. Pulmonic valve, tricuspid valve, mitral valve with minimal mitral regurgitation. Left ventricular function looked good. Ejection fraction of 70%. Mild tricuspid regurgitation. No sign of pericardial effusion. The patient's blood pressure was doing better. Dr. Agrawal evaluated. [place] three brief episodes of collapse with uncertain altered awareness. Features seem more consistent with postural lightheadedness and no sign of primary neurologic events. She has a history of stress seizures which appeared are being worked up thoroughly, have been shown not to be epileptic seizures, so no further workup indicated. Negative EEG. The results were reassuring. Brain MRI on 10/05/2019, sphenoid sinusitis. Cardiology consultation. Patient with lost consciousness when she was lying flat. This is not cardiac syncope. Only possible cardiac syncope would be if she was having advanced heart block or ventricular tachyarrhythmia, and this has not been shown to be the case. Her EKG at 11:19 showed sinus rhythm, rate of 64, RI interval 178, QRS was 84 milliseconds. Blood pressures seem to come up nicely. She does have a history of hypertension. She was requesting to go home on 10/08/2019. Last several blood pressures of 129/92, 98/69, 117/80. DISCHARGE MEDICATIONS: She will be on Alphagan eyedrops 0.1% in both eyes twice a day, I think is 1 drop. She is on ciprofloxacin she takes to the right eye 4 times a day scheduled, Lasix 20 mg p.o. daily, Neurontin 600 mg q.6-8 hours p.r.n., Cozaar 50 mg a day, Singulair 10 mg at bedtime, Prilosec 40 mg a day, Pred Forte 1% to the right eye 4 times a day, prednisolone acetate 1% to the left eye t.i.d., Prolensa 0.07% with 1 drop to both eyes daily, Evista 60 mg a day, Restoril 30 mg at bedtime, Zanaflex 4 mg at bedtime, and trazodone 150 mg at bedtime. We will get her home health. She would like a bedside commode. Encourage some home health physical therapy as well. cc: Pawel Miller MD
--- NOTE | 2019-10-08 15:21 | PROGRESS NOTE ---
DATE: 10/08/2019 SUBJECTIVE: Ms. Sanchez reports she continues to feel lightheaded when she stands. She has not been out of bed except to stand and then immediately sit on the bedside commode. She has not noticed any focal weakness. She has not had any further altered awareness or unconsciousness. IMPRESSION: Syndrome continues to seem to be related to hypotension and not a primary central nervous system problem. PLAN: I do not have any new suggestion from Neurology standpoint. I do not think these episodes are related to her prior "stress seizure" episodes. Thanks for asking Neurology to see Ms. Sanchez. cc: MD LUIS Lehman III
[2019-10-08] MEDS ORDERED: FLU VACCINE IM ONE (16:22)
[2019-10-08] MEDS ORDERED: PNEUMOVAX 23 IM ONE (16:22)
== END 2019-10-08 16:40 | disposition home health service (06) | DRG 312 ==
LOC: ED 22:47 → SUATTDRO 10-05 04:21 → 1N 10-05 04:21
PROVIDERS: ATTEND Emergency Medicine